=== PATIENT | female | born 1950 | race Caucasian/White ===

== ENCOUNTER 2022-12-10 15:36 | Emergency (ER) | payer OTHER, MEDICARE ==
[~2022-12-10] VITALS: Ht 152.4 cm; Wt 43.0 kg
[~2022-12-10 15:36] MED LIST: ASPI-1406 PO; LISI-651 PO
[2022-12-10 15:38] VITALS: BP 129/44
== END 2022-12-10 20:48 | disposition left against medical advice (07) ==
LOC: ER 15:36
DX: R10.33 Periumbilical pain (principal); I10 Essential (primary) hypertension; Z98.890 Other specified postprocedural states
CPT/HCPCS: 99281